=== PATIENT | male | born 1995 | race Caucasian/White ===

== ENCOUNTER 2023-08-31 09:44 | Emergency (ER) | payer SELFPAY ==
--- NOTE | 2023-08-31 10:02 | EDPHYS ---
Physician Documentation [facility] Name: Frankie Byrne Age: 28 yrs Sex: Male : 1995 Arrival Date: 08/31/2023 Time: 09:44 Bed 13 Private MD: ED Physician Hilton Garibay HPI: 08/30 10:03 This 28 yrs old Male presents to ER via Unassigned with complaints of Toothache, rt Abscess. 10:03 Patient presents to the ED with about 3 days of dental pain. He reports an ulcer to the rt roof of his mouth. Denies difficulty swallowing, fever, he complains, symptoms are mild in severity, no other aggravating or elevating factors.. Historical: - Allergies: 10:05 PENICILLINS; db - PMHx: 10:05 None; db - Immunization history:: Adult Immunizations unknown, Client reports receiving the 2nd dose of the Covid vaccine. - Infectious Disease History:: Denies. - Social history:: Smoking status: Patient denies any tobacco usage or history of. ROS: 10:03 Constitutional: Negative for fever, chills, and weight loss, Respiratory: Negative for rt shortness of breath, cough, wheezing, and pleuritic chest pain, Abdomen/GI: Negative for abdominal pain, nausea, vomiting, diarrhea, and constipation, Skin: Negative for injury, rash, and discoloration, Neuro: Negative for headache, weakness, numbness, tingling, and seizure, Psych: Negative for depression, anxiety, suicide ideation, homicidal ideation, and hallucinations, 10:03 ENT: Positive for dental pain, Negative for injury or acute deformity, Exam: 10:03 Constitutional: This is a well developed, well nourished patient who is awake, alert, rt and in no acute distress. Head/Face: Normocephalic, atraumatic. Skin: Warm, dry with normal turgor. Normal color with no rashes, no lesions, and no evidence of cellulitis. MS/ Extremity: Pulses equal, no cyanosis. Neurovascular intact. Full, normal range of motion. Neuro: Awake and alert, GCS 15, oriented to person, place, time, and situation. Cranial nerves II-XII grossly intact. Motor strength 5/5 in all extremities. Sensory grossly intact. Cerebellar exam normal. Normal gait. Psych: Awake, alert, with orientation to person, place and time. Behavior, mood, and affect are within normal limits. 10:03 ENT: Aphthous ulcer noted to the hard palate, small, no appreciable swelling, erythema, drainage. There is dental caries noted to the left maxillary incisor. No posterior pharyngeal erythema or exudates, uvula midline. Vital Signs: 10:04 BP 132 / 100; Pulse 90; Resp 16; Temp 98.3(O); Pulse Ox 100% ; Weight 90.72 kg; Height db 5 ft. 10 in. ; 10:15 BP 136 / 93; Pulse 66; Resp 18; Pulse Ox 100% on R/A; db 10:04 Body Mass Index 28.70 (90.72 kg, 177.8 cm) db MDM: 09:55 Patient medically screened. rt 10:03 Differential diagnosis: Aphthous ulcer, dental carry, dental abscess. Data reviewed: rt vital signs, nurses notes. Test considered but Not performed: CT: No clinical evidence to suggest drainable abscess, CT scan is not indicated. Counseling: I had a detailed discussion with the patient and/or guardian regarding the historical points, exam findings, and any diagnostic results supporting the discharge/admit diagnosis, the need for outpatient follow up, to return to the emergency department if symptoms worsen or persist or if there are any questions or concerns that arise at home. Administered Medications: 10:08 Drug: Lidocaine Mucous Membrane Gel 2 % 1 application Mucous Membrane once Route: db Mucous Membrane; 10:21 Follow up: Response: No adverse reaction db 10:12 Drug: Ketorolac IM 15 mg IM once Route: IM; Site: right deltoid; db 10:22 Follow up: Response: No adverse reaction db Disposition Summary: 08/31/23 10:02 Discharge Ordered Notes: Location: Home rt Problem: new rt Symptoms: are unchanged rt Condition: Stable rt Diagnosis - Aphthous ulcer rt Followup: rt - With: Private Physician - When: 2 - 3 days - Reason: Discharge Instructions: - Discharge Summary Sheet rt - Oral Ulcers rt Forms: - Medication Reconciliation Form rt - Thank You Letter rt - Antibiotic Education rt - Prescription Opioid Use rt - Patient Portal Instructions rt - Leadership Thank You Letter rt Signatures: Amelia Conn RN RN db Hilton Garibay MD MD rt
[2023-08-31] MEDS ORDERED: KETOROLAC 30 MG/ML INJ ONE (10:10)
[2023-08-31] MEDS ORDERED: LIDOCAINE VISCOUS 2% 10ML ORAL SOLN ONE (10:10)
--- NOTE | 2023-08-31 10:23 | ER ---
Nurse's Notes [facility] Name: Frankie Byrne Age: 28 yrs Sex: Male : 1995 Arrival Date: 08/31/2023 Time: 09:44 Bed 13 Private MD: Diagnosis: Aphthous ulcer Presentation: 08/30 10:04 Chief complaint: Patient states: DENTAL PAIN X 3 DAYS GRADUALLY GETTING WORSE. db Coronavirus screen: Vaccine status: Patient reports receiving the 2nd dose of the covid vaccine. Client denies travel out of the [place] in the last 14 days. At this time, the client does not indicate any symptoms associated with coronavirus-19. Ebola Screen: Patient negative for fever greater than or equal to 101.5 degrees Fahrenheit, and additional compatible Ebola Virus Disease symptoms Patient denies exposure to infectious person. Patient denies travel to an Ebola-affected area in the 21 days before illness onset. No symptoms or risks identified at this time. Initial Sepsis Screen: Does the patient meet any 2 criteria? No. Patient's initial sepsis screen is negative. Does the patient have a suspected source of infection? No. Patient's initial sepsis screen is negative. Risk Assessment: Do you want to hurt yourself or someone else? Patient reports no desire to harm self or others. Onset of symptoms was August 29, 2023. 10:04 Method Of Arrival: Ambulatory db 10:04 Acuity: NU 4 db Triage Assessment: 10:05 General: Appears in no apparent distress. comfortable, Behavior is calm, cooperative. db Pain: Complains of pain in mouth. EENT: Reports pain in mouth. Neuro: Level of Consciousness is awake, alert, obeys commands, Oriented to person, place, time, situation, Speech is normal. Cardiovascular: No deficits noted. Respiratory: Airway is patent Respiratory effort is even, unlabored, Respiratory pattern is regular, symmetrical. GI: No deficits noted. No signs and/or symptoms were reported involving the gastrointestinal system. Abdomen is flat. : No deficits noted. No signs and/or symptoms were reported regarding the genitourinary system. Derm: No deficits noted. No signs and/or symptoms reported regarding the dermatologic system. Musculoskeletal: No deficits noted. No signs and/or symptoms reported regarding the musculoskeletal system. Historical: - Allergies: 10:05 PENICILLINS; db - PMHx: 10:05 None; db - Immunization history:: Adult Immunizations unknown, Client reports receiving the 2nd dose of the Covid vaccine. - Infectious Disease History:: Denies. - Social history:: Smoking status: Patient denies any tobacco usage or history of. Screenin:06 [facility] ED Fall Risk Assessment (Adult) History of falling in the last 3 months, db including since admission No falls in past 3 months (0 pts) Confusion or Disorientation No (0 pts) Intoxicated or Sedated No (0 pts) Impaired Gait No (0 pts) Mobility Assist Device Used No (0 pt) Altered Elimination No (0 pt) Score/Fall Risk Level 0 - 2 = Low Risk Oriented to surroundings, Maintained a safe environment. Abuse screen: Denies threats or abuse. Denies injuries from another. Nutritional screening: No deficits noted. Tuberculosis screening: No symptoms or risk factors identified. Assessment: 10:06 Reassessment: Patient appears in no apparent distress at this time. Patient and/or db family updated on plan of care and expected duration. Pain level reassessed. Patient is alert, oriented x 3, equal unlabored respirations, skin warm/dry/pink. SEE TRIAGE FOR INITIAL ASSESSMENT. General: Appears in no apparent distress. comfortable, Behavior is calm, cooperative. 10:21 Reassessment: Patient appears in no apparent distress at this time. Patient and/or db family updated on plan of care and expected duration. Pain level reassessed. Patient is alert, oriented x 3, equal unlabored respirations, skin warm/dry/pink. Patient states feeling better. Patient states symptoms have improved. Neuro: Level of Consciousness is awake, alert, obeys commands, Oriented to person, place, time, situation. Vital Signs: 10:04 BP 132 / 100; Pulse 90; Resp 16; Temp 98.3(O); Pulse Ox 100% ; Weight 90.72 kg; Height db 5 ft. 10 in. ; 10:15 BP 136 / 93; Pulse 66; Resp 18; Pulse Ox 100% on R/A; db 10:04 Body Mass Index 28.70 (90.72 kg, 177.8 cm) db ED Course: 09:46 Patient arrived in ED. rg4 09:47 Hilton Garibay MD is Attending Physician. rt 09:57 Amelia Conn, ADRY is Primary Nurse. db 10:05 Triage completed. db 10:05 Arm band placed on Patient placed in an exam room. db 10:06 Patient has correct armband on for positive identification. Bed in low position. Call db light in reach. Side rails up X 1. Provided Education on: DENTAL PAIN. Pulse ox on. NIBP on. 10:21 No provider procedures requiring assistance completed. Patient did not have IV access db during this emergency room visit. Administered Medications: 10:08 Drug: Lidocaine Mucous Membrane Gel 2 % 1 application Mucous Membrane once Route: db Mucous Membrane; 10:21 Follow up: Response: No adverse reaction db 10:12 Drug: Ketorolac IM 15 mg IM once Route: IM; Site: right deltoid; db 10:22 Follow up: Response: No adverse reaction db Medication: 10:06 VIS not applicable for this client. db Outcome: 10:02 Discharge ordered by . rt 10:21 Discharged to home ambulatory, db 10:21 Condition: stable 10:21 Discharge instructions given to patient, family, Instructed on discharge instructions, follow up and referral plans. 10:22 Patient left the ED. db Signatures: Natalya Miles rg4 Amelia Conn, RN RN db Hilton Garibay MD MD rt Corrections: (The following items were deleted from the chart) 10:05 10:04 Onset of symptoms was August 31, 2023 db db 10:16 10:16 Lidocaine Mucous Membrane Gel 2 % 1 application Mucous Membrane db db
[2023-08-31 17:04] VITALS: BP 136/93; TEMP 98.3; O2SAT 100
== END 2023-08-31 10:22 | disposition home or self-care (01) ==
LOC: ER 09:44
DX: K12.0 Recurrent oral aphthae (principal); Z88.0 Allergy status to penicillin
CPT/HCPCS: 96372; 99284